=== PATIENT | female | born 1975 | race Hispanic/Latino ===

== ENCOUNTER 2018-08-14 18:19 | Emergency (ER) | payer BC ==
[~2018-08-14] VITALS: Ht 172.7 cm; Wt 142.9 kg
--- OUTSIDE RECORDS SUMMARY | 2018-08-14 18:22 | XMS REPORT | Continuity of Care Document ---
Author Author [facility] Interface Address Unknown Phone Unavailable Problems Problem Status Onset Date Classification Date Reported Comments Source SWOLLEN EYE/PAIN Active 02/05/2013 [facility] Depression Active Problem 02/14/2013 [facility] Diabetes mellitus Active Problem 02/14/2013 [facility] Periorbital cellulitis Active Problem 02/14/2013 [facility] CELLULITIS OF FACE Active [facility] Medications Medication Details Route Status Patient Instructions Ordering Provider Order Date Source doxycycline 100 mg, 1 tab, Route: PO, Drug form: TAB, Q12H, Dosing Weight 127.273, kg, Start date: 02/11/13 21:00:00, Duration: 30 day, Stop date: 03/13/13 9:00:00 PO No Longer Active Tere[facility] 02/12/2013 [facility] Cipro 500 mg, 1 tab, Route: PO, Drug form: TAB, Q12H, Dosing Weight 127.273, kg, Start date: 02/11/13 16:00:00, Duration: 30 day, Stop date: 03/13/13 9:00:00 PO No Longer Active Tere[place] 02/11/2013 [facility] Lantus 12 unit, Route: SUB-Q, Bedtime, Dosing Weight 127.273, kg, Start date: 02/10/13 21:00:00, Duration: 30 day, Stop date: 03/11/13 21:00:00 SUB-Q No Longer Active Donna 02/11/2013 [facility] Levemir FlexPen 12 unit, 0.12 mL, Route: SUB-Q, Drug form: INJ, Bedtime, Start date: 02/10/13 21:00:00, Duration: 30 day, Stop date: 03/11/13 21:00:00 SUB-Q No Longer Active Donna 02/11/2013 [facility] vancomycin 1.5 gm, 250 mL, Route: IVPB, Drug form: INJ, ABXQ8H, Start date: 02/10/13 17:00:00, Duration: 30 day, Stop date: 03/12/13 9:00:00 IVPB No Longer Active [place] 02/10/2013 [facility] Actos 45 mg, 3 tab, Route: PO, Drug form: TAB, Daily, Dosing Weight 127.273, kg, Start date: 02/09/13 9:00:00, Duration: 30 day, Stop date: 03/10/13 9:00:00 PO No Longer Active [place] 02/09/2013 [facility] Glucovance 5 mg-500 mg oral tablet 2 tab, Route: PO, Drug Form: TAB, Dosing Weight 127.273, kg, BID, Start date: 02/09/13 9:00:00, Duration: 30 day, Stop date: 03/10/13 17:00:00 PO No Longer Active [place] 02/09/2013 [facility] Zoloft 200 mg, 4 tab, Route: PO, Drug form: TAB, Bedtime, Dosing Weight 127.273, kg, Start date: 02/08/13 21:00:00, Duration: 30 day, Stop date: 03/09/13 21:00:00 PO No Longer Active [place] 02/09/2013 [facility] Ambien 5 mg, 1 tab, Route: PO, Drug form: TAB, Bedtime, PRN Sleep, Start date: 02/08/13 19:58:00, Duration: 30 day, Stop date: 03/10/13 19:57:00 PO No Longer Active [place] 02/09/2013 [facility] Ambien 12.5 mg, Route: PO, PRN, Dosing Weight 127.273, kg, PRN as needed for sleep, Start date: 02/08/13 19:50:00, Duration: 30 day, Stop date: 03/10/13 19:49:00 PO No Longer Active [place] 02/09/2013 [facility] vancomycin 1.25 gm, 250 mL, Route: IVPB, Drug form: INJ, ABXQ8H, Start date: 02/08/13 15:00:00, Duration: 30 day, Stop date: 03/10/13 8:00:00 IVPB No Longer Active [place] 02/08/2013 [facility] vancomycin 1 gm, Route: IVPB, Drug form: INJ, [id number], Dosing Weight 127.273, kg, Start date: 02/08/13 11:00:00, Duration: 30 day, Stop date: 03/09/13 23:00:00 IVPB No Longer Active [place] 02/08/2013 [facility] acetaminophen-hydrocodone 325 mg-5 mg oral tablet 1 tab, Route: PO, Drug Form: TAB, Q4H, PRN Pain, Start date: 02/07/13 17:44:00, Duration: 30 day, Stop date: 03/09/13 17:43:00 PO No Longer Active [place] 02/07/2013 [facility] Cipro I.V. 200 mg/100 mL intravenous solution 200 mg, 100 mL, Route: IVPB, Drug form: INJ, [id number], Dosing Weight 127.273, kg, Start date: 02/07/13 11:00:00, Duration: 30 day, Stop date: 03/08/13 23:00:00 IVPB No Longer Active [place] 02/07/2013 [facility] Dilaudid 0.5 mg, 0.25 mL, Route: IV, Drug form: INJ, Q4H, Dosing Weight 127.273, kg, PRN Pain, Start date: 02/07/13 10:41:00, Duration: 30 day, Stop date: 03/09/13 10:40:00 IV No Longer Active [facility] 02/07/2013 [facility] clindamycin 300 mg, Route: IV, Q8H, Dosing Weight 127.273, kg, Start date: 02/07/13 0:00:00, Duration: 30 day, Stop date: 03/08/13 16:00:00 IV No Longer Active [place] 02/07/2013 [facility] NovoLog FlexPen 3 unit, 0.03 mL, Route: SUB-Q, Drug form: SOLN, Bedtime, PRN Blood Glucose Results, Start date: 02/06/13 22:57:00, Duration: 30 day, Stop date: 03/08/13 22:56:00 SUB-Q No Longer Active [facility] 02/07/2013 [facility] ketorolac 30 mg/mL injectable solution 30 mg, 1 mL, Route: IV, Drug form: INJ, Q8H, PRN Pain, Start date: 02/06/13 22:57:00, Duration: 4 day, Stop date: 02/10/13 22:56:00 IV No Longer Active [facility] 02/07/2013 [facility] Ambien 10 mg, 1 tab, Route: PO, Drug form: TAB, Bedtime, PRN Sleep, Start date: 02/06/13 22:30:00, Duration: 30 day, Stop date: 03/08/13 22:29:00 PO No Longer Active [facility] 02/07/2013 [facility] Zoloft 200 mg, PO, Bedtime, Substitution Allowed PO On Hold 02/07/2013 [facility] clindamycin + Sodium Chloride 0.9% IV 100 mL 300 mg, 2 mL, Route: IVPB, ABXQ8H, Start date: 02/06/13 20:00:00, Duration: 30 day, Stop date: 03/08/13 12:00:00 IVPB No Longer Active [facility] 02/07/2013 [facility] clindamycin + Sodium Chloride 0.9% IV 100 mL 600 mg, 4 mL, Route: IVPB, ABXQ8H, Dosing Weight 127.273, kg, Start date: 02/06/13 20:00:00, Duration: 30 day, Stop date: 03/08/13 14:00:00 IVPB No Longer Active [facility] 02/07/2013 [facility] acetaminophen-hydrocodone 325 mg-5 mg oral tablet 1 tab, Route: PO, Drug Form: TAB, Dosing Weight 127.273, kg, Q4H, PRN Pain Score 1-3, Start date: 02/06/13 16:46:00, Duration: 30 day, Stop date: 03/08/13 16:45:00 PO No Longer Active [place] 02/06/2013 [facility] acetaminophen-hydrocodone 325 mg-10 mg oral tablet 1 tab, Route: PO, Drug Form: TAB, Dosing Weight 127.273, kg, Q4H, PRN Pain Score 4-6, Start date: 02/06/13 16:46:00, Duration: 30 day, Stop date: 03/08/13 16:45:00 PO No Longer Active [place] 02/06/2013 [facility] Saline Flush 0.9% 5 ml, Route: IVP, Drug Form: INJ, Dosing Weight 127.273, kg, PRN, PRN Line Flush, Start date: 02/06/13 16:46:00, Duration: 30 day, Stop date: 03/08/13 16:45:00 IVP No Longer Active [place] 02/06/2013 [facility] glucagon 1 mg, Route: IM, Drug form: PDR/INJ, PRN, Dosing Weight 127.273, kg, PRN Blood Glucose Results, Start date: 02/06/13 16:45:00, Duration: 30 day, Stop date: 03/08/13 16:44:00 IM No Longer Active [place] 02/06/2013 [facility] Dextrose 50% Syringe 12.5 gm, 25 mL, Route: IVP, Drug Form: INJ, Dosing Weight 127.273, kg, PRN, PRN Blood Glucose Results, Start date: 02/06/13 16:45:00, Duration: 30 day, Stop date: 03/08/13 16:44:00 IVP No Longer Active [place] 02/06/2013 [facility] insulin aspart 10 unit, 0.1 mL, Route: SUB-Q, Drug form: SOLN, TID-Before Meals, Dosing Weight 127.273, kg, PRN Blood Glucose Results, Start date: 02/06/13 16:45:00, Duration: 30 day, Stop date: 03/08/13 16:44:00 SUB-Q No Longer Active [place] 02/06/2013 [facility] Dilaudid 1 mg, 1 mL, Route: IV, Drug form: INJ, ONCE, Dosing Weight 127.273, kg, Start date: 02/06/13 16:13:00, Stop date: 02/06/13 16:13:00 IV No Longer Active [place] 02/06/2013 [facility] clindamycin 600 mg, Route: IVPB, ONCE, Dosing Weight 127.273, kg, Priority: STAT, Start date: 02/06/13 11:48:00, Stop date: 02/06/13 11:48:00 IVPB No Longer Active [place] 02/06/2013 [facility] Sodium Chloride 0.9% (Bolus) IV 1,000 mL 1,000 mL, Rate: 1,000 ml/hr, Infuse over: 1 hr, Route: IV, Dosing Weight 127.273 kg, Total Volume: 1,000, Priority: STAT, Start date: 02/06/13 10:59:00, Duration: 1 doses or times, Stop date: 02/06/13 11:58:00, Bolus DoseBolus Dose IV No Longer Active [place] 02/06/2013 [facility] Dilaudid 1 mg, 1 mL, Route: IV, Drug form: INJ, ONCE, Dosing Weight 127.273, kg, Start date: 02/06/13 10:59:00, Stop date: 02/06/13 10:59:00 IV No Longer Active [place] 02/06/2013 [facility] Allergies, Adverse Reactions, Alerts Substance Category Reaction Severity Reaction type Status Date Reported Comments Source morphine drug allergy Allergy Active [facility] Prozac drug allergy Allergy Active [facility] Immunizations Immunization Date Given Site Status Last Updated Comments Source Results Order Name Results Value Reference Range Date Interpretation Comments Source BEDSIDE GLUCOSE TESTING Gluc POC [place] 153 mg/dL 70 - 99 02/12/2013 [place] 1Interpretive Data: Upper Reportable Limit: 200 mg/dL. [facility] BEDSIDE GLUCOSE TESTING Comment1 Notify RN 02/12/2013 NA [facility] BEDSIDE GLUCOSE TESTING Gluc POC Lif[place]n 144 mg/dL 70 - 99 02/12/2013 [place] 2Interpretive Data: Upper Reportable Limit: 200 mg/dL. [facility] BEDSIDE GLUCOSE TESTING Comment1 Notify RN 02/12/2013 NA [facility] BEDSIDE GLUCOSE TESTING Comment1 Notify RN 02/11/2013 NA [facility] BEDSIDE GLUCOSE TESTING Gluc POC [place] 243 mg/dL 70 - 99 02/11/2013 [place] 3Interpretive Data: Upper Reportable Limit: 200 mg/dL. [facility] CHEMISTRY Vanco Tr TND see 02/11/2013 NA [facility] CHEMISTRY Vanco Tr 17.8 ug/ml 02/11/2013 NA 9Interpretive Data: Therapeutic Range: Trough: 10 - 20 ug/mL Peak: 20 - 40 ug/mL Potential Toxicity: >80 ug/mL [facility] CHEMISTRY Vanco Tr TND see 02/10/2013 NA [facility] CHEMISTRY Vanco Tr 13.6 ug/ml 02/10/2013 NA 10Interpretive Data: Therapeutic Range: Trough: 10 - 20 ug/mL Peak: 20 - 40 ug/mL Potential Toxicity: >80 ug/mL [facility] CHEMISTRY Hgb A1C 10.0 % <=5.6 02/10/2013 [place] 8Interpretive Data: The reference range is based on the clinical practice guidelines of the [place] [employer] for diabetes screening; levels of 5.7%-6.4% are indicative of pre-diabetes. [facility] CHEMISTRY AGAP 14.2 meq/L 10.0 - 20.0 02/10/2013 Normal [facility] CHEMISTRY Globulin 3.4 g/dL 2.0 - 4.0 02/10/2013 Normal [facility] CHEMISTRY B/C Ratio 27 6 - 25 02/10/2013 HI [facility] CHEMISTRY A/G Ratio 1.0 0.7 - 1.6 02/10/2013 Normal [facility] CHEMISTRY eGFR 116 mL/min/1.73m2 02/10/2013 NA 4Result Comment: The eGFR is calculated using the CKD-EPI formula. In most young, healthy individuals the eGFR will be >90 mL/min/1.73m2. The eGFR declines with age. An eGFR of 60-89 may be normal in some populations, particularly the elderly, for whom the CKD-EPI formula has not been extensively validated. Use of the eGFR is not recommended in the following populations: Individuals with unstable creatinine concentrations, including patients and those with serious co-morbid conditions. Patients with extremes in muscle mass or diet. The data above are obtained from the National Kidney Disease Education Program (NKDEP) which additionally recommends that when the eGFR is used in patients with extremes of body mass index for purposes of drug dosing, the eGFR should be multiplied by the estimated BMI. [facility] CHEMISTRY AST 11 unit/L 0 - 37 02/10/2013 Normal [facility] CHEMISTRY Bili Total 0.3 mg/dL 0.2 - 1.3 02/10/2013 Normal [facility] CHEMISTRY Alk Phos 110 unit/L 39 - 136 02/10/2013 Normal [facility] CHEMISTRY ALT 23 unit/L 0 - 65 02/10/2013 Normal [facility] CHEMISTRY Albumin Lvl 3.3 g/dL 3.5 - 5.0 02/10/2013 LOW [facility] CHEMISTRY Calcium Lvl 8.9 mg/dL 8.5 - 10.5 02/10/2013 Normal [facility] CHEMISTRY Total Protein 6.7 g/dL 6.4 - 8.4 02/10/2013 Normal [facility] CHEMISTRY CO2 27 meq/L 24 - 32 02/10/2013 Normal [facility] CHEMISTRY Chloride Lvl 102 meq/L 95 - 109 02/10/2013 Normal [facility] CHEMISTRY Creatinine Lvl 0.6 mg/dL 0.5 - 1.4 02/10/2013 Normal [facility] CHEMISTRY BUN 16 mg/dL 7 - 22 02/10/2013 Normal [facility] CHEMISTRY Potassium Lvl 4.2 meq/L 3.5 - 5.1 02/10/2013 Normal [facility] CHEMISTRY Sodium Lvl 139 meq/L 135 - 145 02/10/2013 Normal [facility] CHEMISTRY Glucose Lvl 275 mg/dL 70 - 99 02/10/2013 [place] 6Interpretive Data: Adult reference range values reflect the clinical guidelines of the [place] [employer]. [facility] HEMATOLOGY MCH 29.2 pg 27.0 - 31.0 02/10/2013 Normal [facility] HEMATOLOGY Platelet 277 K/CMM 133 - 450 02/10/2013 Normal [facility] HEMATOLOGY MPV 8.2 fL 7.4 - 10.4 02/10/2013 Normal [facility] HEMATOLOGY RBC 4.41 M/CMM 4.20 - 5.40 02/10/2013 Normal [facility] HEMATOLOGY MCV 88.7 fL 81.0 - 99.0 02/10/2013 Normal [facility] HEMATOLOGY Hct 39.1 % 36.0 - 48.0 02/10/2013 Normal [facility] HEMATOLOGY MCHC 32.9 g/dL 32.0 - 36.0 02/10/2013 Normal [facility] HEMATOLOGY Hgb 12.9 g/dL 12.0 - 16.0 02/10/2013 Normal [facility] HEMATOLOGY RDW 13.1 % 11.5 - 14.5 02/10/2013 Normal [facility] HEMATOLOGY WBC 8.6 K/CMM 3.7 - 10.4 02/10/2013 Normal [facility] HEMATOLOGY Eosinophils # 0.5 K/CMM 0.0 - 0.5 02/10/2013 Normal [facility] HEMATOLOGY Basophils # 0.0 K/CMM 0.0 - 0.2 02/10/2013 Normal [facility] HEMATOLOGY Eosinophils 5.3 % 0.0 - 4.0 02/10/2013 [facility] HEMATOLOGY Lymphocytes # 3.1 K/CMM 1.0 - 5.5 02/10/2013 Normal [facility] HEMATOLOGY Monocytes # 0.7 K/CMM 0.0 - 0.8 02/10/2013 Normal [facility] HEMATOLOGY Basophils 0.4 % 0.0 - 1.0 02/10/2013 Normal [facility] HEMATOLOGY Segs-Bands # 4.4 K/CMM 1.5 - 8.1 02/10/2013 Normal [facility] HEMATOLOGY Lymphocytes 35.9 % 20.0 - 40.0 02/10/2013 Normal [facility] HEMATOLOGY Monocytes 7.6 % 2.0 - 12.0 02/10/2013 Normal [facility] Segs 50.8 % 45.0 - 75.0 02/10/2013 Normal [facility] INR 0.93 0.85 - 1.17 02/07/2013 Normal 11Interpretive Data: RECOMMENDED RANGES FOR PROTIME INR: 2.0-3.0 for most medical and surgical thromboembolic states. 2.5-3.5 for artificial heart valves and recurrent embolism. INR SHOULD BE USED ONLY FOR PATIENTS ON STABLE ANTICOAGULANT THERAPY. [facility] PT 12.7 s 12.0 - 14.7 02/07/2013 Normal [facility] PTT 26.8 s 22.9 - 35.8 02/07/2013 Normal 12Interpretive Data: Heparin Therapeutic Range: 57 - 92 Seconds [facility] Chest 1view Chest 1view Name: JENNIFER JULIO : 1975 Ordering Physician: Phillip Starks Chest 1view : February 07, 2013 09:00:00 PM. CLINICAL INDICATION: Central Line Placement REASON FOR EXAM: Chest 1 view for central line placement Comparison Examination: 05/14/2011. FINDINGS: Cardiomediastinal contours are stable. Pulmonary vasculature appears appropriate. No confluent interstitial opacities, consolidation, effusion or pneumothorax is appreciated. Bony structures are unremarkable. A right-sided PICC line is present with tip in the SVC. IMPRESSION: 1. Right-sided PICC line tip projects in the SVC. SL: 24 02/07/2013 - - Read by: Juan Luis Lance Dictated Date/time: 02/07/13 21:13 Electronically Signed by: Juan Luis Lance DO 02/07/13 21:13 FINAL REPORT [facility] WBC 9.0 K/CMM 3.7 - 10.4 02/07/2013 Normal [facility] MCV 89.7 fL 81.0 - 99.0 02/07/2013 Normal [facility] RBC 4.20 M/CMM 4.20 - 5.40 02/07/2013 Normal [facility] MPV 8.5 fL 7.4 - 10.4 02/07/2013 Normal [facility] Platelet 261 K/CMM 133 - 450 02/07/2013 Normal [facility] Hct 37.7 % 36.0 - 48.0 02/07/2013 Normal [facility] HEMATOLOGY Hgb 12.1 g/dL 12.0 - 16.0 02/07/2013 Normal [facility] HEMATOLOGY RDW 13.4 % 11.5 - 14.5 02/07/2013 Normal [facility] MCHC 32.2 g/dL 32.0 - 36.0 02/07/2013 Normal [facility] MCH 28.9 pg 27.0 - 31.0 02/07/2013 Normal [facility] HEMATOLOGY Segs 55.0 % 45.0 - 75.0 02/07/2013 Normal [facility] HEMATOLOGY Monocytes # 0.7 K/CMM 0.0 - 0.8 02/07/2013 Normal [facility] HEMATOLOGY Lymphocytes # 2.9 K/CMM 1.0 - 5.5 02/07/2013 Normal [facility] HEMATOLOGY Basophils # 0.0 K/CMM 0.0 - 0.2 02/07/2013 Normal [facility] HEMATOLOGY Eosinophils # 0.4 K/CMM 0.0 - 0.5 02/07/2013 Normal [facility] Lymphocytes 32.2 % 20.0 - 40.0 02/07/2013 Normal [facility] HEMATOLOGY Eosinophils 4.2 % 0.0 - 4.0 02/07/2013 [place] [facility] HEMATOLOGY Monocytes 8.1 % 2.0 - 12.0 02/07/2013 Normal [facility] HEMATOLOGY Segs-Bands # 5.0 K/CMM 1.5 - 8.1 02/07/2013 Normal [facility] Basophils 0.5 % 0.0 - 1.0 02/07/2013 Normal [facility] CHEMISTRY eGFR 123 mL/min/1.73m2 02/06/2013 NA 5Result Comment: The eGFR is calculated using the CKD-EPI formula. In most young, healthy individuals the eGFR will be >90 mL/min/1.73m2. The eGFR declines with age. An eGFR of 60-89 may be normal in some populations, particularly the elderly, for whom the CKD-EPI formula has not been extensively validated. Use of the eGFR is not recommended in the following populations: Individuals with unstable creatinine concentrations, including patients and those with serious co-morbid conditions. Patients with extremes in muscle mass or diet. The data above are obtained from the National Kidney Disease Education Program (NKDEP) which additionally recommends that when the eGFR is used in patients with extremes of body mass index for purposes of drug dosing, the eGFR should be multiplied by the estimated BMI. [facility] CHEMISTRY Calcium Lvl 8.8 mg/dL 8.5 - 10.5 02/06/2013 Normal [facility] CHEMISTRY Creatinine Lvl 0.5 mg/dL 0.5 - 1.4 02/06/2013 Normal [facility] CHEMISTRY Sodium Lvl 136 meq/L 135 - 145 02/06/2013 Normal [facility] CHEMISTRY BUN 16 mg/dL 7 - 22 02/06/2013 Normal [facility] CHEMISTRY Glucose Lvl 315 mg/dL 70 - 99 02/06/2013 [place] 7Interpretive Data: Adult reference range values reflect the clinical guidelines of the [place] Diabetes Association. [facility] CHEMISTRY Potassium Lvl 3.8 meq/L 3.5 - 5.1 02/06/2013 Normal [facility] CHEMISTRY Chloride Lvl 100 meq/L 95 - 109 02/06/2013 Normal [facility] CHEMISTRY CO2 27 meq/L 24 - 32 02/06/2013 Normal [facility] CHEMISTRY AGAP 12.8 meq/L 10.0 - 20.0 02/06/2013 Normal [facility] HEMATOLOGY Basophils # 0.1 K/CMM 0.0 - 0.2 02/06/2013 Normal [facility] HEMATOLOGY Segs 72.5 % 45.0 - 75.0 02/06/2013 Normal [facility] HEMATOLOGY Basophils 0.7 % 0.0 - 1.0 02/06/2013 Normal [facility] HEMATOLOGY Monocytes 5.8 % 2.0 - 12.0 02/06/2013 Normal [facility] HEMATOLOGY Lymphocytes 19.1 % 20.0 - 40.0 02/06/2013 [facility] HEMATOLOGY Eosinophils 1.9 % 0.0 - 4.0 02/06/2013 Normal [facility] HEMATOLOGY Segs-Bands # 7.5 K/CMM 1.5 - 8.1 02/06/2013 Normal [facility] HEMATOLOGY Monocytes # 0.6 K/CMM 0.0 - 0.8 02/06/2013 Normal [facility] HEMATOLOGY Lymphocytes # 2.0 K/CMM 1.0 - 5.5 02/06/2013 Normal [facility] HEMATOLOGY Eosinophils # 0.2 K/CMM 0.0 - 0.5 02/06/2013 Normal [facility] HEMATOLOGY MCV 89.4 fL 81.0 - 99.0 02/06/2013 Normal [facility] HEMATOLOGY RBC 4.65 M/CMM 4.20 - 5.40 02/06/2013 Normal [facility] HEMATOLOGY Hct 41.6 % 36.0 - 48.0 02/06/2013 Normal [facility] WBC 10.4 K/CMM 3.7 - 10.4 02/06/2013 Normal [facility] RDW 13.4 % 11.5 - 14.5 02/06/2013 Normal [facility] Hgb 13.4 g/dL 12.0 - 16.0 02/06/2013 Normal [facility] MCH 28.9 pg 27.0 - 31.0 02/06/2013 Normal [facility] MPV 8.4 fL 7.4 - 10.4 02/06/2013 Normal [facility] MCHC 32.3 g/dL 32.0 - 36.0 02/06/2013 Normal [facility] Platelet 306 K/CMM 133 - 450 02/06/2013 Normal [facility] Microbiology Culture: Blood 02/06/2013 [facility] Microbiology Culture: Blood 02/06/2013 [facility] Orbit w contrast CT Orbit w contrast CT NAME: JENNIFER JULIO : 1975 ; F, ORDERING PHYSICIAN: Balbir Norwood Orbit w contrast CT : February 06, 2013 03:30:00 PM . INDICATION: See Clinic Indication. Blurry vision Dictation code:53 Contrast-enhanced CT scan of the orbit (with sagittal and coronal reconstructions): The examination is performed using 16 -channel multislice CT scanner with intravenous bolus administration of contrast material. From the axial high resolution data sagittal and coronal reconstructions were performed using workstation. The examination shows findings consistent with right guzman orbital soft tissue swelling and mild enhancement indicated of for right-sided preseptal cellulitis. No drainable abscess is identified. There are no CT features to indicate post septal cellulitis. The content of the bony orbits including the globe, the extraocular muscles, the optic nerves and the retrobulbar fat planes appear normal. There are no destructive changes involving the skull base portion of the anterior and middle cranial fossa. There is approxi- 2.5 cm diameter mucous retention cyst within the floor of the right maxillary sinus. IMPRESSION: Right-sided preseptal cellulitis. No drainable abscess. No evidence of post septal cellulitis. Right maxillary sinus mucous retention cyst. 02/06/2013 - - Read by: Siva Braden Dictated Date/time: 02/06/13 15:36 Electronically Signed by: Siva Braden MD 02/06/13 15:40 FINAL REPORT [facility] Vital Signs Vital Sign Value Date Comments Source Diastolic (mm Hg) 83 02/12/2013 [facility] Systolic (mm Hg) 139 02/12/2013 [facility] Temperature Oral (F) 98.3 F 02/12/2013 [facility] Heart Rate 96 02/12/2013 [facility] Respitory Rate 20 02/12/2013 [facility] Systolic (mm Hg) 139 02/12/2013 [facility] Temperature Oral (F) 98.3 F 02/12/2013 [facility] Respitory Rate 20 02/12/2013 [facility] Diastolic (mm Hg) 87 02/12/2013 [facility] Heart Rate 82 02/12/2013 [facility] Diastolic (mm Hg) 78 02/11/2013 [facility] Systolic (mm Hg) 135 02/11/2013 [facility] Respitory Rate 18 02/11/2013 [facility] Heart Rate 86 02/11/2013 [facility] Temperature Oral (F) 98.1 F 02/11/2013 [facility] Height 172.72 cm 02/07/2013 [facility] Weight 127.273 02/07/2013 [facility] Weight 127.273 02/06/2013 [facility] Height 172.72 cm 02/06/2013 [facility] Encounters Location Location Details Encounter Type Encounter Number Reason For Visit Attending Provider ADM Date DC Date Status Source Not Sent Inpatient [id number] PHILLIP STARKS 02/07/2013 02/12/2013 Active [facility] Procedures Procedure Code Date Perfomer Comments Source section [id number] [facility] Cholecystectomy [id number] [facility]
--- OUTSIDE RECORDS SUMMARY | 2018-08-14 18:22 | XMS REPORT | Summary of Care ---
Author Author DON VICTORIA M.D. Organization Unknown Address Unknown Phone Unavailable Care Team Providers Care Phlebotomist Supervisor/Instructor Name Role Phone DON VICTORIA M.D. 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 * Quantity: 30 Refills: 0 DON VICTORIA M.D. * Start : 04-Dec-2017 Active Sulindac 200 MG Oral Tablet TAKE 1 TABLET 2 TIMES DAILY AFTER MEALS * Quantity: 60 Refills: 0 DON VICTORIA M.D. * Start : 26-Dec-2017 Active TraMADol HCl - 50 MG Oral Tablet TAKE 1 TABLET EVERY 4 TO 6 HOURS NEEDED. * Quantity: 30 Refills: 0 DON VICTORIA M.D. * Start : 26-Dec-2017 Active Allergies and Adverse Reactions Name Dates Details morphine (Allergy) Status: Active Past Medical History Name Dates Details History of Depression (311, F32.9) Status: Resolved History of Diabetes (250.00, E11.9) Status: Resolved Procedures Procedure Dates Details History of section Completed History of Gallbladder surgery Completed Immunization Name Dates Details Immunizations not documented Social History Name Dates Details - Status: Name Dates Details Never smoker Vital Signs Date Test Result Details [id number] Height 68 in Status: Weight 252 lb Status: Body Mass Index Calculated 38.32 kg/m2 Status: Body Surface Area Calculated 2.25 m2 Status: Results Date Description Value Details [id number] [U] XRAY WRIST MIN 3 VWS RIGHT [id number] XR WRIST MIN 3 VWS RIGHT Images acquired, not reported on this accession number. Plan of Care Name Dates Details Planned Observations Planned Goals not documented Interventions Provided Medication Changes* Sulindac 200 MG Oral Tablet - Start * TraMADol HCl - 50 MG Oral Tablet - Start Follow-ups/Referrals* Physical Therapy Referral Ortho; Done: 26 Dec 2017 Medications/Immunizations Administered* Dexamethasone Sodium Phosphate 4 MG/ML Injection Solution * MethylPREDNISolone Acetate 40 MG/ML Injection Suspension Plan* Completed at Today's Appointment: * Injection * Patient Education/Instructions: * Patient Education Provided * Reassurance * Patient/Parent to call or return with any abnormal changes * NSAIDS and ICE application for continued pain and swelling. * DME Orders: * Wrist Brace * Orders: * Physical Therapy * Medications:. * Follow Up: * Return to the clinic in 3 weeks or as needed. Instructions Name Dates Details Instructions not documented Encounters Appointment; DON VICTORIA M.D. Encounter Diagnosis: Problem not documented On: 04-Dec-2017 14:50 Appointment; DON VICTORIA M.D. Encounter Diagnosis: Problem not documented On: 26-Dec-2017 9:30
--- OUTSIDE RECORDS SUMMARY | 2018-08-14 18:22 | XMS REPORT | CCD ---
Author Author Auto Generated Organization [facility] Address Unknown Phone Unavailable Care Team Providers Care Endodontist Name Role Phone Todd Starks Allergies, Adverse Reactions, Alerts Substance Reaction Status morphine Active Prozac Active Problem List Condition Effective Dates Status Depression Active Diabetes mellitus Active Periorbital cellulitis Active Medications Medication Instructions Start Date End Date Status Dilaudid 1 mg, 1 mL, Route: IV, Drug form: 02/06/2013 02/06/2013 Completed INJ, ONCE, Dosing Weight 127.273, kg, Start date: 02/06/13 16:13:00, Stop date: 02/06/13 16:13:00 Cipro I.V. 200 200 mg, 100 mL, Route: IVPB, Drug 02/07/2013 02/11/2013 Discontinued mg/100 mL form: INJ, [id number], Dosing Weight intravenous solution 127.273, kg, Start date: 02/07/13 11:00:00, Duration: 30 day, Stop date: 03/08/13 23:00:00 Dilaudid 0.5 mg, 0.25 mL, Route: IV, Drug 02/07/2013 02/12/2013 Discontinued form: INJ, Q4H, Dosing Weight 127.273, kg, PRN Pain, Start date: 02/07/13 10:41:00, Duration: 30 day, Stop date: 03/09/13 10:40:00 clindamycin 600 mg, Route: IVPB, ONCE, Dosing 02/06/2013 02/06/2013 Completed Weight 127.273, kg, Priority: STAT, Start date: 02/06/13 11:48:00, Stop date: 02/06/13 11:48:00 Ambien 10 mg, 1 tab, Route: PO, Drug form: 02/06/2013 02/08/2013 Discontinued TAB, Bedtime, PRN Sleep, Start date: 02/06/13 22:30:00, Duration: 30 day, Stop date: 03/08/13 22:29:00 vancomycin 1.5 gm, 250 mL, Route: IVPB, Drug 02/10/2013 02/11/2013 Discontinued form: INJ, ABXQ8H, Start date: 02/10/13 17:00:00, Duration: 30 day, Stop date: 03/12/13 9:00:00 Lantus 12 unit, Route: SUB-Q, Bedtime, 02/10/2013 02/10/2013 Deleted Dosing Weight 127.273, kg, Start date: 02/10/13 21:00:00, Duration: 30 day, Stop date: 03/11/13 21:00:00 glucagon 1 mg, Route: IM, Drug form: 02/06/2013 02/12/2013 Discontinued PDR/INJ, PRN, Dosing Weight 127.273, kg, PRN Blood Glucose Results, Start date: 02/06/13 16:45:00, Duration: 30 day, Stop date: 03/08/13 16:44:00 Dextrose 50% Syringe 12.5 gm, 25 mL, Route: IVP, Drug 02/06/2013 02/12/2013 Discontinued Form: INJ, Dosing Weight 127.273, kg, PRN, PRN Blood Glucose Results, Start date: 02/06/13 16:45:00, Duration: 30 day, Stop date: 03/08/13 16:44:00 Dextrose 50% Syringe 25 gm, 50 mL, Route: IVP, Drug 02/06/2013 02/12/2013 Discontinued Form: INJ, Dosing Weight 127.273, kg, PRN, PRN Blood Glucose Results, Start date: 02/06/13 16:45:00, Duration: 30 day, Stop date: 03/08/13 16:44:00 insulin aspart 10 unit, 0.1 mL, Route: SUB-Q, Drug 02/06/2013 02/12/2013 Discontinued form: SOLN, TID-Before Meals, Dosing Weight 127.273, kg, PRN Blood Glucose Results, Start date: 02/06/13 16:45:00, Duration: 30 day, Stop date: 03/08/13 16:44:00 insulin aspart 8 unit, 0.08 mL, Route: SUB-Q, Drug 02/06/2013 02/12/2013 Discontinued form: SOLN, TID-Before Meals, Dosing Weight 127.273, kg, PRN Blood Glucose Results, Start date: 02/06/13 16:45:00, Duration: 30 day, Stop date: 03/08/13 16:44:00 insulin aspart 4 unit, 0.04 mL, Route: SUB-Q, Drug 02/06/2013 02/12/2013 Discontinued form: SOLN, TID-Before Meals, Dosing Weight 127.273, kg, PRN Blood Glucose Results, Start date: 02/06/13 16:45:00, Duration: 30 day, Stop date: 03/08/13 16:44:00 insulin aspart 6 unit, 0.06 mL, Route: SUB-Q, Drug 02/06/2013 02/12/2013 Discontinued form: SOLN, TID-Before Meals, Dosing Weight 127.273, kg, PRN Blood Glucose Results, Start date: 02/06/13 16:45:00, Duration: 30 day, Stop date: 03/08/13 16:44:00 insulin aspart 2 unit, 0.02 mL, Route: SUB-Q, Drug 02/06/2013 02/12/2013 Discontinued form: SOLN, TID-Before Meals, Dosing Weight 127.273, kg, PRN Blood Glucose Results, Start date: 02/06/13 16:45:00, Duration: 30 day, Stop date: 03/08/13 16:44:00 Zoloft 200 mg, PO, Bedtime, Substitution 02/06/2013 Suspended Allowed clindamycin 300 mg, Route: IV, Q8H, Dosing 02/07/2013 02/06/2013 Deleted Weight 127.273, kg, Start date: 02/07/13 0:00:00, Duration: 30 day, Stop date: 03/08/13 16:00:00 acetaminophen-hydroc 1 tab, Route: PO, Drug Form: TAB, 02/06/2013 02/06/2013 Discontinued odone 325 mg-5 mg Dosing Weight 127.273, kg, Q4H, PRN oral tablet Pain Score 1-3, Start date: 02/06/13 16:46:00, Duration: 30 day, Stop date: 03/08/13 16:45:00 acetaminophen-hydroc 1 tab, Route: PO, Drug Form: TAB, 02/06/2013 02/06/2013 Discontinued odone 325 mg-10 mg Dosing Weight 127.273, kg, Q4H, PRN oral tablet Pain Score 4-6, Start date: 02/06/13 16:46:00, Duration: 30 day, Stop date: 03/08/13 16:45:00 Saline Flush 0.9% 5 ml, Route: IVP, Drug Form: INJ, 02/06/2013 02/12/2013 Discontinued Dosing Weight 127.273, kg, PRN, PRN Line Flush, Start date: 02/06/13 16:46:00, Duration: 30 day, Stop date: 03/08/13 16:45:00 clindamycin + Sodium 300 mg, 2 mL, Route: IVPB, ABXQ8H, 02/06/2013 02/06/2013 Canceled Chloride 0.9% IV 100 Start date: 02/06/13 20:00:00, mL Duration: 30 day, Stop date: 03/08/13 12:00:00 vancomycin 1 gm, Route: IVPB, Drug form: INJ, 02/08/2013 02/08/2013 Deleted [id number], Dosing Weight 127.273, kg, Start date: 02/08/13 11:00:00, Duration: 30 day, Stop date: 03/09/13 23:00:00 Ambien 5 mg, 1 tab, Route: PO, Drug form: 02/08/2013 02/12/2013 Discontinued TAB, Bedtime, PRN Sleep, Start date: 02/08/13 19:58:00, Duration: 30 day, Stop date: 03/10/13 19:57:00 Levemir FlexPen 12 unit, 0.12 mL, Route: SUB-Q, 02/10/2013 02/12/2013 Discontinued Drug form: INJ, Bedtime, Start date: 02/10/13 21:00:00, Duration: 30 day, Stop date: 03/11/13 21:00:00 Ambien 12.5 mg, Route: PO, PRN, Dosing 02/08/2013 02/08/2013 Deleted Weight 127.273, kg, PRN as needed for sleep, Start date: 02/08/13 19:50:00, Duration: 30 day, Stop date: 03/10/13 19:49:00 Zoloft 200 mg, 4 tab, Route: PO, Drug 02/08/2013 02/12/2013 Discontinued form: TAB, Bedtime, Dosing Weight 127.273, kg, Start date: 02/08/13 21:00:00, Duration: 30 day, Stop date: 03/09/13 21:00:00 acetaminophen-hydroc 1 tab, Route: PO, Drug Form: TAB, 02/07/2013 02/12/2013 Discontinued odone 325 mg-5 mg Q4H, PRN Pain, Start date: 02/07/13 oral tablet 17:44:00, Duration: 30 day, Stop date: 03/09/13 17:43:00 Actos 45 mg, 3 tab, Route: PO, Drug form: 02/09/2013 02/12/2013 Discontinued TAB, Daily, Dosing Weight 127.273, kg, Start date: 02/09/13 9:00:00, Duration: 30 day, Stop date: 03/10/13 9:00:00 Glucovance 5 mg-500 2 tab, Route: PO, Drug Form: TAB, 02/09/2013 02/12/2013 Discontinued mg oral tablet Dosing Weight 127.273, kg, BID, Start date: 02/09/13 9:00:00, Duration: 30 day, Stop date: 03/10/13 17:00:00 NovoLog FlexPen 3 unit, 0.03 mL, Route: SUB-Q, Drug 02/06/2013 02/12/2013 Discontinued form: SOLN, Bedtime, PRN Blood Glucose Results, Start date: 02/06/13 22:57:00, Duration: 30 day, Stop date: 03/08/13 22:56:00 NovoLog FlexPen 2 unit, 0.02 mL, Route: SUB-Q, Drug 02/06/2013 02/12/2013 Discontinued form: SOLN, Bedtime, PRN Blood Glucose Results, Start date: 02/06/13 22:57:00, Duration: 30 day, Stop date: 03/08/13 22:56:00 NovoLog FlexPen 4 unit, 0.04 mL, Route: SUB-Q, Drug 02/06/2013 02/12/2013 Discontinued form: SOLN, Bedtime, PRN Blood Glucose Results, Start date: 02/06/13 22:57:00, Duration: 30 day, Stop date: 03/08/13 22:56:00 NovoLog FlexPen 1 unit, 0.01 mL, Route: SUB-Q, Drug 02/06/2013 02/12/2013 Discontinued form: SOLN, Bedtime, PRN Blood Glucose Results, Start date: 02/06/13 22:57:00, Duration: 30 day, Stop date: 03/08/13 22:56:00 clindamycin + Sodium 600 mg, 4 mL, Route: IVPB, ABXQ8H, 02/06/2013 02/08/2013 Discontinued Chloride 0.9% IV 100 Dosing Weight 127.273, kg, Start mL date: 02/06/13 20:00:00, Duration: 30 day, Stop date: 03/08/13 14:00:00 ketorolac 30 mg/mL 30 mg, 1 mL, Route: IV, Drug form: 02/06/2013 02/10/2013 Completed injectable solution INJ, Q8H, PRN Pain, Start date: 02/06/13 22:57:00, Duration: 4 day, Stop date: 02/10/13 22:56:00 vancomycin 1.25 gm, 250 mL, Route: IVPB, Drug 02/08/2013 02/10/2013 Discontinued form: INJ, ABXQ8H, Start date: 02/08/13 15:00:00, Duration: 30 day, Stop date: 03/10/13 8:00:00 Sodium Chloride 0.9% 1,000 mL, Rate: 1,000 ml/hr, Infuse 02/06/2013 02/06/2013 Completed (Bolus) IV 1,000 mL over: 1 hr, Route: IV, Dosing Weight 127.273 kg, Total Volume: 1,000, Priority: STAT, Start date: 02/06/13 10:59:00, Duration: 1 doses or times, Stop date: 02/06/13 11:58:00, Bolus Dose Bolus Dose Dilaudid 1 mg, 1 mL, Route: IV, Drug form: 02/06/2013 02/06/2013 Completed INJ, ONCE, Dosing Weight 127.273, kg, Start date: 02/06/13 10:59:00, Stop date: 02/06/13 10:59:00 Cipro 500 mg, 1 tab, Route: PO, Drug 02/11/2013 02/12/2013 Discontinued form: TAB, Q12H, Dosing Weight 127.273, kg, Start date: 02/11/13 16:00:00, Duration: 30 day, Stop date: 03/13/13 9:00:00 doxycycline 100 mg, 1 tab, Route: PO, Drug 02/11/2013 02/12/2013 Discontinued form: TAB, Q12H, Dosing Weight 127.273, kg, Start date: 02/11/13 21:00:00, Duration: 30 day, Stop date: 03/13/13 9:00:00 Vital Signs Most recent to oldest [Reference Range]: 1 2 3 Height 172.72 cm (02/06/2013 20:18:00) 172.72 cm (02/06/2013 10:32:00) Temperature Oral [96.4-99.1 DegF] 98.3 DegF (02/12/2013 00:27:00) 98.3 DegF (02/11/2013 19:19:00) 98.1 DegF (02/11/2013 16:00:00) Systolic Blood Pressure [90-140 mmHg] 139 mmHg (02/12/2013 00:27:00) 139 mmHg (02/11/2013 19:19:00) 135 mmHg (02/11/2013 16:00:00) Diastolic Blood Pressure [60-90 mmHg] 83 mmHg (02/12/2013 00:27:00) 87 mmHg (02/11/2013 19:19:00) 78 mmHg (02/11/2013 16:00:00) Respiratory Rate [14-20 BRMIN] 20 BRMIN (02/12/2013 00:27:00) 20 BRMIN (02/11/2013 19:19:00) 18 BRMIN (02/11/2013 16:00:00) Peripheral Pulse Rate [60-100 bpm] 96 bpm (02/12/2013 00:27:00) 82 bpm (02/11/2013 19:19:00) 86 bpm (02/11/2013 16:00:00) Weight 127.273 kg (02/06/2013 20:18:00) 127.273 kg (02/06/2013 10:32:00) Results BEDSIDE GLUCOSE TESTING Most recent to oldest [Reference Range]: 1 2 3 Gluc POC Lifscn [70-99 mg/dL] 153 mg/dL 1 *HI* (02/12/2013 08:15:00) 144 mg/dL 2 *HI* (02/11/2013 20:20:00) 243 mg/dL 3 *HI* (02/11/2013 16:06:00) Comment1 Notify RN *NA* (02/12/2013 08:15:00) Notify RN *NA* (02/11/2013 20:20:00) Notify RN *NA* (02/11/2013 16:06:00) 1Interpretive Data: Upper Reportable Limit: 200 mg/dL. 2Interpretive Data: Upper Reportable Limit: 200 mg/dL. 3Interpretive Data: Upper Reportable Limit: 200 mg/dL. CHEMISTRY Most recent to oldest [Reference Range]: 1 2 3 Sodium Lvl [135-145 mEq/L] 139 mEq/L (02/10/2013 05:05:00) 136 mEq/L (02/06/2013 11:12:00) Potassium Lvl [3.5-5.1 mEq/L] 4.2 mEq/L (02/10/2013 05:05:00) 3.8 mEq/L (02/06/2013 11:12:00) Chloride Lvl [95-109 mEq/L] 102 mEq/L (02/10/2013 05:05:00) 100 mEq/L (02/06/2013 11:12:00) CO2 [24-32 mEq/L] 27 mEq/L (02/10/2013 05:05:00) 27 mEq/L (02/06/2013 11:12:00) AGAP [10.0-20.0 mEq/L] 14.2 mEq/L (02/10/2013 05:05:00) 12.8 mEq/L (02/06/2013 11:12:00) Creatinine Lvl [0.5-1.4 mg/dL] 0.6 mg/dL (02/10/2013 05:05:00) 0.5 mg/dL (02/06/2013 11:12:00) eGFR 116 mL/min/1.73m2 4 *NA* (02/10/2013 05:05:00) 123 mL/min/1.73m2 5 *NA* (02/06/2013 11:12:00) BUN [7-22 mg/dL] 16 mg/dL (02/10/2013 05:05:00) 16 mg/dL (02/06/2013 11:12:00) B/C Ratio [6-25] 27 *HI* (02/10/2013 05:05:00) Glucose Lvl [70-99 mg/dL] 275 mg/dL 6 *HI* (02/10/2013 05:05:00) 315 mg/dL 7 *HI* (02/06/2013 11:12:00) Total Protein [6.4-8.4 g/dL] 6.7 g/dL (02/10/2013 05:05:00) Albumin Lvl [3.5-5.0 g/dL] 3.3 g/dL *LOW* (02/10/2013 05:05:00) Globulin [2.0-4.0 g/dL] 3.4 g/dL (02/10/2013 05:05:00) A/G Ratio [0.7-1.6] 1.0 (02/10/2013 05:05:00) Calcium Lvl [8.5-10.5 mg/dL] 8.9 mg/dL (02/10/2013 05:05:00) 8.8 mg/dL (02/06/2013 11:12:00) ALT [0-65 unit/L] 23 unit/L (02/10/2013 05:05:00) AST [0-37 unit/L] 11 unit/L (02/10/2013 05:05:00) Alk Phos [39-136 unit/L] 110 unit/L (02/10/2013 05:05:00) Bili Total [0.2-1.3 mg/dL] 0.3 mg/dL (02/10/2013 05:05:00) Hgb A1C [<=5.6 %] 10.0 % 8 *HI* (02/10/2013 05:05:00) Vanco Tr TND see MAR *NA* (02/11/2013 07:15:00) see MAR *NA* (02/10/2013 05:05:00) Vanco Tr 17.8 ug/ml 9 *NA* (02/11/2013 07:15:00) 13.6 ug/ml 10 *NA* (02/10/2013 05:05:00) 4Result Comment: The eGFR is calculated using [...] from the National Kidney Disease Education Program ( NKDEP) which additionally recommends that when the eGFR is used in patients with extremes of body mass index for purposes of drug dosing, the eGFR should be mul tiplied by the estimated BMI. 5Result Comment: The eGFR is calculated using [...] from the National Kidney Disease Education Program ( NKDEP) which additionally recommends that when the eGFR is used in patients with extremes of body mass index for purposes of drug dosing, the eGFR should be mul tiplied by the estimated BMI. 6Interpretive Data: Adult reference range values reflect the clinical guidelines of the [place] [employer]. 7Interpretive Data: Adult reference range values reflect the clinical guidelines of the [place] [employer]. 8Interpretive Data: The reference range is based on the clinical practice guidelines of the [place] [employer] for diabetes screening; levels of 5.7%-6.4% are indicative of pre-diabetes. 9Interpretive Data: Therapeutic Range: Trough: 10 - 20 ug/mL Peak: 20 - 40 ug/mL Potential Toxicity: >80 ug/mL 10Interpretive Data: Therapeutic Range: Trough: 10 - 20 ug/mL Peak: 20 - 40 ug/mL Potential Toxicity: >80 ug/mL HEMATOLOGY Most recent to oldest [Reference Range]: 1 2 3 WBC [3.7-10.4 K/CMM] 8.6 K/CMM (02/10/2013 05:05:00) 9.0 K/CMM (02/07/2013 05:35:00) 10.4 K/CMM (02/06/2013 11:12:00) RBC [4.20-5.40 M/CMM] 4.41 M/CMM (02/10/2013 05:05:00) 4.20 M/CMM (02/07/2013 05:35:00) 4.65 M/CMM (02/06/2013 11:12:00) Hgb [12.0-16.0 g/dL] 12.9 g/dL (02/10/2013 05:05:00) 12.1 g/dL (02/07/2013 05:35:00) 13.4 g/dL (02/06/2013 11:12:00) Hct [36.0-48.0 %] 39.1 % (02/10/2013 05:05:00) 37.7 % (02/07/2013 05:35:00) 41.6 % (02/06/2013 11:12:00) MCV [81.0-99.0 fL] 88.7 fL (02/10/2013 05:05:00) 89.7 fL (02/07/2013 05:35:00) 89.4 fL (02/06/2013 11:12:00) MCH [27.0-31.0 pg] 29.2 pg (02/10/2013 05:05:00) 28.9 pg (02/07/2013 05:35:00) 28.9 pg (02/06/2013 11:12:00) MCHC [32.0-36.0 g/dL] 32.9 g/dL (02/10/2013 05:05:00) 32.2 g/dL (02/07/2013 05:35:00) 32.3 g/dL (02/06/2013 11:12:00) RDW [11.5-14.5 %] 13.1 % (02/10/2013 05:05:00) 13.4 % (02/07/2013 05:35:00) 13.4 % (02/06/2013 11:12:00) Platelet [133-450 K/CMM] 277 K/CMM (02/10/2013 05:05:00) 261 K/CMM (02/07/2013 05:35:00) 306 K/CMM (02/06/2013 11:12:00) MPV [7.4-10.4 fL] 8.2 fL (02/10/2013 05:05:00) 8.5 fL (02/07/2013 05:35:00) 8.4 fL (02/06/2013 11:12:00) Segs [45.0-75.0 %] 50.8 % (02/10/2013 05:05:00) 55.0 % (02/07/2013 05:35:00) 72.5 % (02/06/2013 11:12:00) Lymphocytes [20.0-40.0 %] 35.9 % (02/10/2013 05:05:00) 32.2 % (02/07/2013 05:35:00) 19.1 % *LOW* (02/06/2013 11:12:00) Monocytes [2.0-12.0 %] 7.6 % (02/10/2013 05:05:00) 8.1 % (02/07/2013 05:35:00) 5.8 % (02/06/2013 11:12:00) Eosinophils [0.0-4.0 %] 5.3 % *HI* (02/10/2013 05:05:00) 4.2 % *HI* (02/07/2013 05:35:00) 1.9 % (02/06/2013 11:12:00) Basophils [0.0-1.0 %] 0.4 % (02/10/2013 05:05:00) 0.5 % (02/07/2013 05:35:00) 0.7 % (02/06/2013 11:12:00) Segs-Bands # [1.5-8.1 K/CMM] 4.4 K/CMM (02/10/2013 05:05:00) 5.0 K/CMM (02/07/2013 05:35:00) 7.5 K/CMM (02/06/2013 11:12:00) Lymphocytes # [1.0-5.5 K/CMM] 3.1 K/CMM (02/10/2013 05:05:00) 2.9 K/CMM (02/07/2013 05:35:00) 2.0 K/CMM (02/06/2013 11:12:00) Monocytes # [0.0-0.8 K/CMM] 0.7 K/CMM (02/10/2013 05:05:00) 0.7 K/CMM (02/07/2013 05:35:00) 0.6 K/CMM (02/06/2013 11:12:00) Eosinophils # [0.0-0.5 K/CMM] 0.5 K/CMM (02/10/2013 05:05:00) 0.4 K/CMM (02/07/2013 05:35:00) 0.2 K/CMM (02/06/2013 11:12:00) Basophils # [0.0-0.2 K/CMM] 0.0 K/CMM (02/10/2013 05:05:00) 0.0 K/CMM (02/07/2013 05:35:00) 0.1 K/CMM (02/06/2013 11:12:00) PT [12.0-14.7 seconds] 12.7 seconds (02/07/2013 17:40:00) INR [0.85-1.17] 0.93 11 (02/07/2013 17:40:00) PTT [22.9-35.8 seconds] 26.8 seconds 12 (02/07/2013 17:40:00) 11Interpretive Data: RECOMMENDED RANGES FOR PROTIME INR: 2.0-3.0 for most medical and surgical thromboembolic states. 2.5-3.5 for artificial heart valves and recurrent embolism. INR SHOULD BE USED ONLY FOR PATIENTS ON STABLE ANTICOAGULANT THERAPY. 12Interpretive Data: Heparin Therapeutic Range: 57 - 92 Seconds Microbiology Reports PROCEDURE:Culture: Blood STATUS: Auth (Verified) BODY SITE: Left Arm COLLECTED DATE/TIME: 02/06/2013 11:12:00 SOURCE: Blood FREE TEXT SOURCE: FINAL REPORTS Final Report No Growth At 5 Days PRELIMINARY REPORTS Preliminary Report No Growth At 2 Days Preliminary Report No Growth At 1 Day Preliminary Report No Growth At 4 Days Preliminary Report No Growth; Holding Preliminary Report No Growth At 3 Days PROCEDURE:Culture: Blood STATUS: Auth (Verified) BODY SITE: Right Arm COLLECTED DATE/TIME: 02/06/2013 11:05:00 SOURCE: Blood FREE TEXT SOURCE: FINAL REPORTS Final Report No Growth At 5 Days PRELIMINARY REPORTS Preliminary Report No Growth At 2 Days Preliminary Report No Growth At 3 Days Preliminary Report No Growth; Holding Preliminary Report No Growth At 1 Day Preliminary Report No Growth At 4 Days Procedures Procedures Date Related Diagnosis section Cholecystectomy
[2018-08-14 19:55] LABS: BASOPHILS % 0.3 % (0.0-1.0); EOSINOPHILS # (AUTO) 0.5 (0.0-0.4); EOSINOPHILS % 4.4 % (0.0-6.0); HEMATOCRIT 40.3 % (34.2-44.1); HEMOGLOBIN 12.8 g/dL (12.0-16.0); LYMPHOCYTES # (AUTO) 2.5 (1.0-3.2); MEAN CORPUSCULAR HEMOGLOBIN 27.8 pg (28-32); MEAN CORPUSCULAR HGB CONC 31.8 g/dL (31-35); MEAN CORPUSCULAR VOLUME 87.6 fL (81-99); MONOCYTES # (AUTO) 0.7 (0.2-0.8); MONOCYTES % 7.1 % (4.4-11.3); NEUTROPHILS # (AUTO) 6.4 (2.1-6.9); NEUTROPHILS % 62.7 % (38.7-80.0); PLATELET COUNT 388 x10e3/uL (140-360); RED CELL DISTRIBUTION WIDTH 13.8 % (11.7-14.4)
--- NOTE | 2018-08-14 20:06 | Diagnostic Imaging Report ---
EXAMINATION: CHEST 2 VIEWS INDICATION: Swelling legs ^ORDER PLACED BY ^[id number] ^1940 ^Y COMPARISON: None FINDINGS: PA and lateral views TUBES and LINES: None. LUNGS: Limited by body habitus. Lungs are well inflated. Lungs are clear. There is no evidence of pneumonia or pulmonary edema. PLEURA: No pleural effusion or pneumothorax. HEART AND MEDIASTINUM: The cardiomediastinal silhouette is unremarkable. BONES AND SOFT TISSUES: No acute osseous lesion. Soft tissues are unremarkable. UPPER ABDOMEN: No free air under the diaphragm. IMPRESSION: No acute thoracic abnormality. Signed by: Dr. Power Garrido MD on 08/14/2018 8:02 PM
[2018-08-14 20:07] LABS: INR 0.81
[2018-08-14 20:08] LABS: PARTIAL THROMBOPLASTIN TIME 26.8 seconds (23.8-35.5)
[2018-08-14 20:10] LABS: BILIRUBIN,URINE NEGATIVE (NEGATIVE); CLARITY,URINE CLEAR (CLEAR); COLOR,URINE YELLOW (YELLOW); KETONES,URINE NEGATIVE (NEGATIVE); LEUKOCYTE ESTERASE ,URINE NEGATIVE (NEGATIVE); NITRITE,URINE NEGATIVE (NEGATIVE); PROTEIN,URINE DIPSTICK NEGATIVE (NEGATIVE); URINE UROBILINOGEN 0.2 mg/dL (0.2 - 1)
[2018-08-14 20:11] LABS: EPITHELIAL CELLS,URINE RARE /LPF
[2018-08-14 20:19] LABS: ALANINE AMINOTRANSFERASE 12 IU/L (0-55); ALBUMIN 3.7 g/dL (3.5-5.0); ALBUMIN/GLOBULIN RATIO 0.9 (0.8-2.0); ALKALINE PHOSPHATASE 131 IU/L (40-150); ANION GAP 13.6 mmol/L (8-16); BLOOD UREA NITROGEN 18 mg/dL (7-26); BUN/CREATININE RATIO 22 (6-25); CALCIUM 9.7 mg/dL (8.4-10.2); CARBON DIOXIDE 29 mmol/L (22-29); CHLORIDE 101 mmol/L (98-107); CREATINE KINASE 125 IU/L (29-168); CREATININE, SERUM 0.83 mg/dL (0.57-1.11); EST GLOMERULAR FILTRATION RATE > 60 ML/MIN (60-); GLUCOSE 173 mg/dL (74-118); MAGNESIUM 2.6 MG/DL (1.3-2.1); POTASSIUM 3.6 mmol/L (3.5-5.1); SODIUM 140 mmol/L (136-145)
[2018-08-14 21:58] VITALS: BP 129/76
== END 2018-08-14 22:11 | disposition home or self-care (01) ==
LOC: ER 18:19
DX: I87.1 Compression of vein (principal); M79.605 Pain in left leg; M79.604 Pain in right leg; M79.89 Other specified soft tissue disorders; I10 Essential (primary) hypertension; E11.9 Type 2 diabetes mellitus without complications
CPT/HCPCS: 36415; 71046; 80053; 81001; 82550; 82553; 83735; 83880; 84484; 85025; 85610; 85730; 99283

== ENCOUNTER 2019-06-14 21:35 | Emergency (ER) | payer BC ==
[~2019-06-14] VITALS: Ht 172.7 cm; Wt 142.9 kg
--- OUTSIDE RECORDS SUMMARY | 2019-06-14 21:38 | XMS REPORT ---
Author Author [facility] Organization [facility] Address Unknown Phone Unavailable Care Team Providers Care Bilingual Teacher Aide Name Role Phone Judah PINEDA Unavailable Unavailable Payers Payer Name Policy Type Policy Number Effective Date Expiration Date Problems This patient has no known problems. Allergies, Adverse Reactions, Alerts Allergy Name Allergy Type Status Severity Reaction(s) Onset Date Inactive Date Treating Clinician Comments morphine DA Active PA 2018-09-25 00:00:00 morphine DA Active PA 2018-09-24 00:00:00 morphine DA Active PA 2016-04-07 00:00:00 Medications This patient has no known medications. Results Test Description Test Time Test Comments Text Results Atomic Results Result Comments CHEST 2 VIEWS 2018-08-14 20:02:00 [place] [address] Patient Name: JENNIFER JULIO MR #: [id number] : 1975 Age/Sex: 42/F Req #: [id number] Adm Physician: Ordered by: IDRIS AMES CARD BOXER Report #: [id number] Location: ER Room/Bed: Procedure: [id number] DX/CHEST 2 VIEWS Exam Date: 08/14/18 Exam Time: 1938 REPORT STATUS: Signed EXAMINATION: CHEST 2 VIEWS INDICATION: Swelling legs ORDER PLACED BY [id number] 1939 Y COMPARISON: None FINDINGS: PA and lateral views TUBES and LINES: None. LUNGS: Limited by body habitus. Lungs are well inflated. Lungs are clear. There is no evidence of pneumonia or pulmonary edema. PLEURA: No pleural effusion or pneumothorax. HEART AND MEDIASTINUM: The cardiomediastinal silhouette is unremarkable. BONES AND SOFT TISSUES: No acute osseous lesion. Soft tissues are unremarkable. UPPER ABDOMEN: No free air under the diaphragm. IMPRESSION: No acute thoracic abnormality. Signed by: Dr. Power Oquendo MD on 08/14/2018 8:02 PM Dictated By: POWER OQUENDO MD 01 Transcribed By: LISANDRO on 08/14/182001 COPY TO: IDRIS AMES NP
== END 2019-06-14 22:05 | disposition home or self-care (01) ==
LOC: ER 21:35
DX: R10.2 Pelvic and perineal pain (principal); E11.9 Type 2 diabetes mellitus without complications; E78.5 Hyperlipidemia, unspecified; F32.9 Major depressive disorder, single episode, unspecified
CPT/HCPCS: 99282

== ENCOUNTER 2019-11-18 20:48 | Emergency (ER) | payer BC ==
[~2019-11-18] VITALS: Ht 172.7 cm; Wt 142.9 kg
[2019-11-18] MEDS ORDERED: MECLIZINE HCL 12.5 MG TAB PO ONE (22:00)
[2019-11-18 22:09] LABS: BASOPHILS % 0.4 % (0.0-1.0); EOSINOPHILS # (AUTO) 0.5 (0.0-0.4); EOSINOPHILS % 4.7 % (0.0-6.0); HEMATOCRIT 41.3 % (34.2-44.1); HEMOGLOBIN 13.1 g/dL (12.0-16.0); LYMPHOCYTES # (AUTO) 2.6 (1.0-3.2); LYMPHOCYTES % 23.1 % (18.0-39.1); MEAN CORPUSCULAR HEMOGLOBIN 28.3 pg (28-32); MEAN CORPUSCULAR HGB CONC 31.7 g/dL (31-35); MEAN CORPUSCULAR VOLUME 89.2 fL (81-99); MONOCYTES # (AUTO) 0.7 (0.2-0.8); MONOCYTES % 6.5 % (4.4-11.3); NEUTROPHILS # (AUTO) 7.4 (2.1-6.9); NEUTROPHILS % 64.9 % (38.7-80.0); PLATELET COUNT 358 x10e3/uL (140-360); RED BLOOD COUNT 4.63 x10e6/uL (3.6-5.1); RED CELL DISTRIBUTION WIDTH 13.6 % (11.7-14.4)
[2019-11-18 22:27] LABS: ALANINE AMINOTRANSFERASE 16 IU/L (0-55); ALBUMIN 3.6 g/dL (3.5-5.0); ALBUMIN/GLOBULIN RATIO 0.9 (0.8-2.0); ALKALINE PHOSPHATASE 106 IU/L (40-150); ANION GAP 10.2 mmol/L (8-16); BLOOD UREA NITROGEN 15 mg/dL (7-26); BUN/CREATININE RATIO 19 (6-25); CARBON DIOXIDE 31 mmol/L (22-29); CHLORIDE 101 mmol/L (98-107); CREATINE KINASE 92 IU/L (29-168); CREATININE, SERUM 0.81 mg/dL (0.57-1.11); EST GLOMERULAR FILTRATION RATE > 60 ML/MIN (60-); GLUCOSE 143 mg/dL (74-118); POTASSIUM 3.2 mmol/L (3.5-5.1); SODIUM 139 mmol/L (136-145)
--- NOTE | 2019-11-18 22:40 | Diagnostic Imaging Report ---
EXAMINATION: Head CT without contrast. HISTORY:Dizziness. COMPARISON:None. TECHNIQUE: Multidetector axial images were obtained from the foramen magnum to the vertex without contrast. The images were reconstructed using brain and bone algorithms. Thin section brain images were reformatted into coronal and sagittal planes. Dose modulation, iterative reconstruction, and/or weight based adjustment of the mA/kV was utilized to reduce the radiation dose to as low as reasonably achievable. Intravenous contrast: None IMAGE QUALITY: Acceptable. FINDINGS: Skull/scalp: No lytic or blastic. lesions. No surgical changes. Parenchyma: No abnormal density. No acute hemorrhage, mass or acute major vascular territorial infarct. Arteries: No density suggestive of thrombosis. Dural sinuses: No abnormal density suggestive of thrombosis. Ventricles: No hydrocephalus or displacement. Extra-axial spaces: No abnormal density. Brain volume: Normal for age. Craniocervical junction: No mass, Chiari malformation, or basilar invagination. Sella: No mass. Paranasal/mastoid sinuses: Partial visualization of polypoid mucosal thickening in bilateral maxillary sinuses. IMPRESSION: No acute intracranial abnormality. Signed by: Dr. Tamie Nelson M.D. on 11/18/2019 10:38 PM
[2019-11-18 23:32] LABS: BILIRUBIN,URINE NEGATIVE (NEGATIVE); CLARITY,URINE CLEAR (CLEAR); COLOR,URINE YELLOW (YELLOW); KETONES,URINE NEGATIVE (NEGATIVE); LEUKOCYTE ESTERASE ,URINE NEGATIVE (NEGATIVE); NITRITE,URINE NEGATIVE (NEGATIVE); PROTEIN,URINE DIPSTICK NEGATIVE (NEGATIVE); URINE UROBILINOGEN 0.2 mg/dL (0.2 - 1)
[2019-11-18 23:47] LABS: BACTERIA,URINE RARE /HPF; EPITHELIAL CELLS,URINE FEW /LPF; RBC,URINE 0-5 /HPF (0-5); WBC,URINE (MAN) 0-5 /HPF (0-5)
== END 2019-11-19 00:05 | disposition home or self-care (01) ==
LOC: ER 20:48
DX: H81.12 Benign paroxysmal vertigo, left ear (principal)
CPT/HCPCS: 36415; 70450; 80053; 81001; 82550; 82553; 84484; 84702; 85025; 93005; 99284; J8597